=== PATIENT | female | born 1970 | race Caucasian/White ===

== ENCOUNTER 2017-10-29 07:41 | Day surgery (SDC) | payer BC ==
[2017-10-27 12:29] VITALS: BMI 24.0
[2017-10-29] MEDS ORDERED: MIDAZOLAM HCL 2 MG/2 ML SINGLE DOSE VIAL ONE (08:30)
[2017-10-29] MEDS ORDERED: ceFAZolin SODIUM 1 GM VIAL ONE (08:55)
[2017-10-29] MEDS ORDERED: SODIUM CHLORIDE 0.9% P/F 10 ML VIAL IJ ONE (08:55)
[2017-10-29] MEDS ORDERED: ONDANSETRON 4 MG/2 ML VIAL ONE ×2 (08:55→09:13)
[2017-10-29] MEDS ORDERED: DEXAMETHASONE SOD PHOSPHATE 4 MG/1 ML VIAL ONE ×2 (08:55→09:13)
[2017-10-29] MEDS ORDERED: PROPOFOL 20 ML ONE (08:55)
[2017-10-29] MEDS ORDERED: LIDOCAINE HCL/PF 2% SDV 5ML VIAL ONE (08:55)
[2017-10-29] MEDS ORDERED: LIDOCAINE HCL 1%, 10 MG/ML (20ML VIAL) ONE (08:58)
[2017-10-29] MEDS ORDERED: KETOROLAC TROMETHAMINE 30 MG/1 ML VIAL ONE (09:13)
[2017-10-29 10:45] VITALS: TEMP 97.5
[2017-10-29 10:51] VITALS: BP 89/56; PULSE 48
--- NOTE | 2017-10-29 11:02 | OP ---
DATE OF OPERATION: 10/29/2017 PREOPERATIVE DIAGNOSIS: Right long finger foreign body. POSTOPERATIVE DIAGNOSIS: Right long finger foreign body. OPERATIVE PROCEDURE: Right long finger foreign body excision. SURGEON: Bentley Johnson MD ANESTHESIA: Local with sedation. COMPLICATIONS: None. ESTIMATED BLOOD LOSS: Minimal. INDICATIONS: The patient is a 47-year-old female with the above findings, indicated for operative treatment. The risks, benefits, and alternatives were discussed with the patient at length, and proper informed consent was obtained. PROCEDURE: After proper identification of the patient and the correct operative site, the patient was brought to the operating room and placed supine on the table. Prominences were well-padded. Sedation and local anesthesia were given. Right upper extremity was prepped and draped in the usual sterile fashion. Well-padded tourniquet was placed with a sterile prep. Esmarch bandage used to exsanguinate the right upper extremity. Tourniquet inflated to 250 mmHg. A longitudinal incision was made over the area where the foreign body was present on the volar distal pulp of the long finger. Incision was taken sharply through the skin with blunt and sharp dissection through subcutaneous tissues. Foreign body was found to be a piece of glass, which was excised and sent to the lab. Wound was repaired with a 5-0 nylon suture and no further foreign bodies were found. Sterile dressings were applied. Patient was brought to the recovery room in stable condition. She tolerated the procedure well. BENTLEY JOHNSON M.D. [id number]
[2017-10-29] MEDS ORDERED: oxyCODONE HCL 5 MG TABLET PO PRN (11:17)
[2017-10-29] MEDS ORDERED: ONDANSETRON 4 MG/2 ML VIAL IVPUSH PRN (11:17)
[2017-10-29] MEDS ORDERED: LACTATED RINGERS SOLUTION 1,000 ML IV SCH (11:30)
--- NOTE | 2017-10-31 08:33 | PATH ---
Surgical Pathology Report Patient Name: ALYCE MARTIN [facility]. Rec. #: [id number] /Age/Gender: 1970 (Age: 47) / F Account: [id number] Location: [facility] Taken: 10/29/2017 Received: 10/29/2017 Reported: 10/31/2017 Physicians: Bentley Quan M.D. Specimen(s) Received RIGHT LONG FINGER FOREIGN BODY Clinical History Right long finger foreign body Final Diagnosis FOREIGN BODY, RIGHT LONG FINGER, REMOVAL: FOREIGN BODY GROSSLY CONSISTENT WITH PORTION OF GLASS (GROSS ONLY). Electronically Signed Ruslan Holm M.D. Gross Description Received fresh labeled "right long finger foreign body," is a 0.4 x 0.1 x 0.1 cm clear foreign body, possibly consistent with a piece of glass. No soft tissue is present. No sections are submitted, gross only. /10/30/2017 saudi10/30/2017
== END 2017-10-29 10:25 | disposition home or self-care (01) ==
LOC: FASU 07:41
PROVIDERS: ATTEND Orthopaedic Surgery Hand Surgery
PROC: 0JBJ0ZZ Excision of Right Hand Subcutaneous Tissue and Fascia, Open Approach (ICD-10-PCS; principal; 2017-10-29 09:08)
DX: S60.452A Superficial foreign body of right middle finger, initial encounter (principal); X58.XXXA Exposure to other specified factors, initial encounter; Y93.89 Activity, other specified; Y92.89 Other specified places as the place of occurrence of the external cause
CPT/HCPCS: 84703; 88300-TC